=== PATIENT | female | born 2000 | race Caucasian/White ===

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

== ENCOUNTER 2018-01-26 16:58 | Emergency (ER) | payer OTHER ==
[2018-01-26 18:49] VITALS: BP 98/45
--- NOTE | 2018-01-26 19:26 | UC ---
Throat Pain/Nasal Elder HPI - HPI Summary HPI Summary: Pt presents with c/o sore throat, generalized malaise and nasal congestion and post auricular discomfort, right more than left - History of Current Complaint Chief Complaint: UCGeneralIllness Stated Complaint: SORE THROAT Time Seen by Provider: 01/26/18 19:20 Hx Obtained From: Patient Hx Last Menstrual Period: current ?: No Onset/Duration: Gradual Onset, Lasting Days, Still Present, Worse Since - osnet Severity: Moderate Pain Intensity: 6 Cough: Nonproductive Associated Signs & Symptoms: Positive: Dysphagia - Epiglottits Risk Factors Epiglottis Risk Factors: Negative - Allergies/Home Medications Allergies/Adverse Reactions: Allergies Allergy/AdvReac Type Severity Reaction Status Date / Time No Known Allergies Allergy Verified 01/26/18 18:41 Home Medications: Home Medications Ibuprofen TAB* [Advil TAB*] 400 mg PO Q6H PRN 01/26/18 [History Confirmed ] Sertraline* [Zoloft*] 50 mg PO DAILY 01/26/18 [History Confirmed 01/26/18] clonazePAM [Clonazepam] 0.5 mg PO TID PRN 01/26/18 [History Confirmed 01/26/18] PMH/Surg Hx/FS Hx/Imm Hx Previously Healthy: Yes - Surgical History Surgical History: None - Family History Known Family History: Positive: Cardiac Disease - Social History Occupation: Student - [employer], plays on [employer] Alcohol Use: Occasionally Substance Use Type: None Smoking Status (MU): Never Smoked Tobacco Have You Smoked in the Last Year: No - Immunization History Vaccination Up to Date: Yes Review of Systems Constitutional: Fever - subjective, Chills, Fatigue Skin: Negative Eyes: Negative ENT: Sore Throat, Ear Ache, Sinus Congestion Respiratory: Cough Cardiovascular: Negative Gastrointestinal: Negative Genitourinary: Negative Motor: Negative, Decreased ROM Musculoskeletal: Myalgia Neurological: Negative Psychological: Negative Is Patient Immunocompromised?: No All Other Systems Reviewed And Are Negative: Yes Physical Exam Triage Information Reviewed: Yes Appearance: Ill-Appearing Vital Signs: Initial Vital Signs Temp 98.3 F 01/26/18 18:44 Pulse 46 01/26/18 18:44 Resp 18 01/26/18 18:44 BP 98/45 01/26/18 18:44 Pulse Ox 100 01/26/18 18:44 Vital Signs Reviewed: Yes Eye Exam: Normal ENT Exam: Other ENT: Positive: Pharyngeal erythema, Tonsillar swelling Dental Exam: Normal Neck exam: Normal Neck: Positive: Enlarged Nodes @ - cervical Respiratory Exam: Normal Respiratory: Positive: No respiratory distress Cardiovascular Exam: Normal Musculoskeletal Exam: Normal Neurological Exam: Normal Psychological Exam: Normal Skin Exam: Normal Throat Pain/Nasal Course/Dx - Differential Dx/Diagnosis Differential Diagnosis/HQI/PQRI: Influenza, Mononucleosis, Tonsillitis, URI Provider Diagnoses: tonsillitis Discharge - Sign-Out/Discharge Documenting (check all that apply): Patient Departure All imaging exams completed and their final reports reviewed: No Studies - Discharge Plan Condition: Stable Disposition: HOME Prescriptions: Amoxicillin PO (*) [Amoxicillin 500 MG CAP*] 500 mg PO Q12H #20 cap Patient Education Materials: Tonsillitis (ED) Referrals: [facility] [Outside] No Primary Care Phys,NOPCP [Primary Care Provider] - - Billing Disposition and Condition Condition: STABLE Disposition: Home
== END 2018-01-26 19:32 | disposition home or self-care (01) ==
LOC: UCCORT 16:58
DX: J03.90 Acute tonsillitis, unspecified (principal)
CPT/HCPCS: 99212; G0463

== ENCOUNTER 2018-08-21 12:40 | Emergency (ER) | payer OTHER ==
[2018-08-21 13:41] VITALS: BP 138/50
--- NOTE | 2018-08-21 14:19 | UC ---
Respiratory Complaint HPI - HPI Summary HPI Summary: Respiratory illness more than one week ago and now has had continued sinus pressure with greenish nasal coryza over the past few days. - History of Current Complaint Chief Complaint: UCGeneralIllness Stated Complaint: COUGH, NAUSEA Time Seen by Provider: 08/21/18 14:19 Hx Obtained From: Patient Hx Last Menstrual Period: 07/2018 ?: No Onset/Duration: Gradual Onset Timing: Constant Severity Initially: Mild Severity Currently: Mild Pain Intensity: 8 Character: Cough: Nonproductive Aggravating Factors: Nothing Alleviating Factors: Nothing Associated Signs And Symptoms: Positive: URI, Nasal Congestion, Sinus Discomfort - Allergies/Home Medications Allergies/Adverse Reactions: Allergies Allergy/AdvReac Type Severity Reaction Status Date / Time No Known Allergies Allergy Verified 08/21/18 13:38 Home Medications: Home Medications Escitalopram Oxalate [Lexapro 10 mg] 10 mg PO DAILY 08/21/18 [History Confirmed 08/21/18] PMH/Surg Hx/FS Hx/Imm Hx Previously Healthy: Yes - Surgical History Surgical History: Yes Surgery Procedure, Year, and Place: wisdom teeth - Family History Known Family History: Positive: None, Cardiac Disease - Social History Alcohol Use: Occasionally Substance Use Type: None Smoking Status (MU): Never Smoked Tobacco Have You Smoked in the Last Year: No - Immunization History Vaccination Up to Date: Yes Review of Systems All Other Systems Reviewed And Are Negative: Yes ENT: Positive: Nasal Discharge, Sinus Congestion, Sinus Pain/Tenderness Respiratory: Positive: Cough - Mild nonproductive cough. Is Patient Immunocompromised?: No Physical Exam Triage Information Reviewed: Yes Appearance: Well-Appearing, No Pain Distress, Well-Nourished Vital Signs: Initial Vital Signs Temp 99.0 F 08/21/18 13:37 Pulse 80 08/21/18 13:37 Resp 16 08/21/18 13:37 BP 138/50 08/21/18 13:37 Pulse Ox 100 08/21/18 13:37 Vital Signs Reviewed: Yes Eye Exam: Normal ENT: Positive: Nasal congestion, Nasal drainage - Yellowish green nasal coryza, TMs normal, Sinus tenderness - Tenderness on palpation over maxillary sinuses bilaterally., Uvula midline. Negative: Tonsillar swelling, Tonsillar exudate, Trismus, Muffled voice, Hoarse voice Neck exam: Normal Neck: Positive: Supple, Nontender, No Lymphadenopathy Respiratory Exam: Normal Cardiovascular Exam: Normal Abdominal Exam: Normal Bowel Sounds: Positive: Present Musculoskeletal Exam: Normal Neurological Exam: Normal Psychological Exam: Normal Skin Exam: Normal Respiratory Course/Dx - Course Course Of Treatment: She has been comfortable here. I'm going to treat her for a sinus infection. She is follow-up with her primary care provider as needed if no improvement in 4 -5 days. - Differential Dx/Diagnosis Provider Diagnosis: Sinusitis Discharge - Sign-Out/Discharge Documenting (check all that apply): Patient Departure All imaging exams completed and their final reports reviewed: No Studies - Discharge Plan Condition: Good Disposition: HOME Prescriptions: Amoxicillin PO (*) [Amoxicillin 875 MG (*)] 875 mg PO BID 10 Days #20 tab Patient Education Materials: Sinusitis (ED) Forms: *School Release Referrals: No Primary Care Phys,NOPCP [Primary Care Provider] - ADAM BOLAND [OOgave, APPLICATION, OTHER] - Additional Instructions: Increase fluids, follow-up with the [facility] if no improvement in 3 or 4 days. - Billing Disposition and Condition Condition: GOOD Disposition: Home - Attestation Statements Provider Attestation: I was available for consult. This patient was seen by the CARMEN. The patient was not presented to, seen by, or examined by me. -Mary
== END 2018-08-21 14:44 | disposition home or self-care (01) ==
LOC: UCCORT 12:40
DX: J01.90 Acute sinusitis, unspecified (principal)
CPT/HCPCS: 99212; G0463

== ENCOUNTER 2018-09-08 15:13 | Emergency (ER) | payer OTHER ==
[2018-09-08 15:35] VITALS: BP 107/52
--- NOTE | 2018-09-08 15:50 | UC ---
Complaint Female HPI - HPI Summary HPI Summary: 18-year-old female presents with 3 day history of dysuria, frequency, urgency, and hematuria. Associated with some mild low back pain. Denies fever, chills, abdominal pain, nausea, vomiting, dyspareunia, vaginal discharge, or abnormal vaginal bleeding. Last menstrual period 2 weeks ago. Sexually active. States she is on oral control and has not missed a dose. - History Of Current Complaint Chief Complaint: UCGU Stated Complaint: URINARY, LOW BACK PAIN Time Seen by Provider: 09/08/18 15:30 Hx Obtained From: Patient Hx Last Menstrual Period: 08/26/18 Pain Intensity: 6 - Allergies/Home Medications Allergies/Adverse Reactions: Allergies Allergy/AdvReac Type Severity Reaction Status Date / Time No Known Allergies Allergy Verified 09/08/18 15:35 PMH/Surg Hx/FS Hx/Imm Hx Previously Healthy: Yes Psychological History: Anxiety, Depression - Surgical History Surgical History: Yes Surgery Procedure, Year, and Place: wisdom teeth - Family History Known Family History: Positive: None, Cardiac Disease - Social History Occupation: Student Lives: Dormitory/Roommates Alcohol Use: Occasionally Substance Use Type: None Smoking Status (MU): Never Smoked Tobacco Have You Smoked in the Last Year: No - Immunization History Vaccination Up to Date: Yes Review of Systems All Other Systems Reviewed And Are Negative: Yes Constitutional: Negative: Fever, Chills Skin: Negative: Rash Respiratory: Positive: Negative Cardiovascular: Positive: Negative Gastrointestinal: Negative: Abdominal Pain, Vomiting, Diarrhea, Nausea Genitourinary: Positive: Dysuria, Hematuria, Frequency, Urgency. Negative: Vaginal/Penile Discharge, Abnormal Bleeding Musculoskeletal: Positive: Negative Neurological: Positive: Negative Is Patient Immunocompromised?: No Physical Exam - Summary Physical Exam Summary: GENERAL APPEARANCE: Well developed, well nourished, alert and cooperative, and appears to be in no acute distress. CARDIAC: Normal S1 and S2. No S3, S4 or murmurs. Rhythm is regular. There is no peripheral edema, cyanosis or pallor. Extremities are warm and well perfused. Capillary refill is less than 2 seconds. Peripheral pulses intact. LUNGS: Clear to auscultation without rales, rhonchi, wheezing or diminished breath sounds. ABDOMEN: Positive bowel sounds. Soft, nondistended, nontender. No guarding or rebound. No masses or hepatosplenomegally. No CVA tenderness. MUSKULOSKELETAL: ROM intact to all extremities. No joint erythema or tenderness. Normal muscular development. Normal gait. SKIN: Skin normal color, texture and turgor with no lesions or eruptions. Triage Information Reviewed: Yes Vital Signs: Initial Vital Signs Temp 99.2 F 09/08/18 15:33 Pulse 64 09/08/18 15:33 Resp 16 09/08/18 15:33 BP 107/52 09/08/18 15:33 Pulse Ox 100 09/08/18 15:33 Vital Signs Reviewed: Yes Complaint Female Dx - Course Course Of Treatment: 18-year-old female presents with 3 day history of dysuria, frequency, urgency, and hematuria. Associated with some mild low back pain. Denies fever, chills, abdominal pain, nausea, vomiting, dyspareunia, vaginal discharge, or abnormal vaginal bleeding. Last menstrual period 2 weeks ago. Sexually active. States she is on oral control and has not missed a dose. Afebrile. Vital signs stable. Exam was overall unremarkable. [id number] urinalysis showed 1+ blood and 1+ leukocytes. Urine culture pending. Will treat her for a urinary tract infection with Bactrim DS 1 tablet twice a day for 5 days and provider within Pyridium 100 mg 3 times a day 2 days for comfort. She is to return here or follow up with the [facility] in 3-5 days if symptoms do not improve. Anticipatory guidance and warning symptoms were reviewed with the patient. Verbalizes understanding and agrees with plan of care. - Differential Dx/Diagnosis Provider Diagnosis: UTI (urinary tract infection) Discharge - Sign-Out/Discharge Documenting (check all that apply): Patient Departure All imaging exams completed and their final reports reviewed: No Studies - Discharge Plan Condition: Stable Disposition: HOME Prescriptions: Phenazopyridine TAB* [Pyridium 100 mg TAB*] 100 mg PO TID #6 tab Sulfamethox/Trimethoprim DS* [Bactrim DS 800/160 TAB*] 1 tab PO BID #10 tab Patient Education Materials: Urinary Tract Infection in Women (ED) Referrals: No Primary Care Phys,NOPCP [Primary Care Provider] - Additional Instructions: Your urine test in the clinic today is suggestive of a urinary tract infection. We will start you on an antibiotic to treat for the infection. We will also send a urine culture today to see what bacteria grow out and make sure the antibiotic you were prescribed is appropriate to treat the infection. It will take 48-72 hours to get these results. We will contact you if there is any change in your treatment plan. Start Bactrim DS 1 tablet twice a day for 5 days. Take Pyridium 1 tablet every 8 hours for next 2 days to help with the discomfort. This medication will turn your urine an orange color. Drink plenty of fluids. To help prevent urinary tract infections: 1) Be sure to wipe from front to back. 2) Urinate immediately after any sexual intercourse. 3) Avoid taking bubble baths. Return here or follow up with the [facility] in 3-5 days if symptoms persist. Seek immediate medical attention in the emergency room if you develop fever greater than 100.5 F, have severe abdominal pain, persistent vomiting, or any worsening of symptoms. - Billing Disposition and Condition Condition: STABLE Disposition: Home
== END 2018-09-08 16:09 | disposition home or self-care (01) ==
LOC: UCCORT 15:13
DX: N39.0 Urinary tract infection, site not specified (principal); R35.0 Frequency of micturition; R31.9 Hematuria, unspecified; M54.5 Low back pain; F41.9 Anxiety disorder, unspecified; F32.9 Major depressive disorder, single episode, unspecified
CPT/HCPCS: 81003; 84702; 87086; 99211; G0463